=== PATIENT | male | born 1940 | race Caucasian/White ===

== ENCOUNTER 2020-03-02 15:21 | IRF | payer MEDICARE, SELFPAY ==
--- NOTE | ~2020-03-02 | XR_ITS ---
EXAMINATION: XR elbow RT 2V DATE: 03/05/2020 17:06 INDICATION: Right elbow swelling and cellulitis. Fall. TECHNIQUE: 2 views of right elbow were obtained. COMPARISON: None. FINDINGS: Bone alignment is normal. No fracture. There is mild elbow joint osteoarthritis. There is a n enthesophyte at olecranon. No elbow joint effusion. There is soft tissue swelling overlying olecran on, consistent with bursitis. IMPRESSION: 1. Olecranon bursitis. 2. Mild elbow joint osteoarthritis. Reviewed, dictated and finalized at location A.
--- NOTE | ~2020-03-02 | US_ITS ---
EXAMINATION: US venous doppler UE RT DATE: 03/06/2020 09:53 INDICATION: Right upper limb swelling. TECHNIQUE: Grayscale ultrasound images without and with compression and Doppler ultrasound images of the right upper extremity veins were obtained. COMPARISON: None. FINDINGS: The visualized portions of the right internal jugular vein, subclavian vein, axillary vein, brachial veins, basilic vein, cephalic vein, radial vein, and ulnar vein are patent. IMPRESSION: 1. No deep venous thrombosis. Reviewed, dictated and finalized at location A.
--- NOTE | 2020-03-02 15:43 | ADMGEN ---
This patient, Freeman Truong, [facility] Patient/family oriented to hospital policies and general routines including ID bracelet, bed and alarms, visiting hours, pain management, procedures, bathroom and other care routines, personal items, smoking policy, room service/diet, and visiting hours. Valuables list has been completed. Information on how to activate the Rapid Response Team has been discussed. Patient/Family are encouraged to report perceived risks to care and to ask questions if they do not understand what they are told or what they should do.
[2020-03-02 16:00] VITALS: BP 139/73; PULSE 76; RESP 20; TEMP 37; O2SAT 97
[2020-03-02 16:01] VITALS: BMI 29.5
[2020-03-02 16:58] LABS: Glucose Point of Care 134 (65-105)
[2020-03-02] MEDS: metFORMIN HCL 500 MG TABLET 1000 MG PO (18:03)
[2020-03-02 18:34] VITALS: BMI 29.5
[2020-03-02] MEDS: levETIRAcetam 500 MG TABLET PO (20:08)
[2020-03-02] MEDS: ATORVASTATIN 40 MG TABLET PO (20:08)
[2020-03-02 22:00] VITALS: BP 129/81; PULSE 115; RESP 18; TEMP 36.2; O2SAT 96
--- NOTE | 2020-03-02 22:38 | PC.NURSE ---
poor safety awareness, freq gets up on own, bed alarm sounds, room by nurses station, reoriented and encouraged to use call light
[2020-03-03 04:51] LABS: Basophils Percent Auto 0.2 % (0.2-1.2); Eosinophils Absolute Auto 0.1 K/mm3 (0-0.3); Eosinophils Percent Auto 1.2 % (0-4.4); Hematocrit 46.2 % (42.0-52.0); Hemoglobin 16.1 g/dL (14.0-18.0); Immature Granulocyte Absolute 0.05 K/mm3 (0.00-0.031); Immature Granulocyte Percent A 0.4 % (0-0.5); Lymphocytes Absolute Auto 2.11 K/mm3 (0.9-3.2); Lymphocytes Percent Auto 17.4 % (18.3-44.2); Mean Corpuscular HGB Conc 34.8 g/dl (32-36); Mean Corpuscular Hemoglobin 29.1 pg (26-34); Mean Corpuscular Volume 83.5 fl (80-100); Monocytes Absolute Auto 1.3 K/mm3 (0.1-0.6); Monocytes Percent Auto 10.9 % (2.6-8.5); Neutrophils Absolute Auto 8.5 K/mm3 (1.3-6.7); Neutrophils Percent Auto 69.9 % (45.5-73.1); Platelet Count Result 169 k/mm3 (150-375); Red Blood Count 5.53 M/mm3 (4.6-6.20); Red Cell Distribution Width 12.8 % (11.5-14.5); White Blood Count 12.2 K/mm3 (4.5-10.0)
[2020-03-03 04:55] LABS: Hemoglobin A1C 6.6 % (<5.7)
[2020-03-03 05:02] LABS: Blood Urea Nitrogen 14 mg/dL (9-20); Carbon Dioxide 28 mmol/L (22-30); Chloride 100 mmol/L (98-107); Cholesterol 88 mg/dL (0-200); Estimated CRCL calculation 66 ml/min; Estimated Glomerular Filt Rate > 60; Glucose 171 mg/dL (75-110); HDL Direct 31 mg/dL; Potassium 3.7 mmol/L (3.4-5.0); Sodium 136 mmol/L (137-145); Triglycerides 112 mg/dL (<150)
[2020-03-03 05:18] LABS: LDL Cholesterol Direct < 30 mg/dL
[2020-03-03] MEDS: metFORMIN HCL 500 MG TABLET 1000 MG PO ×2 (05:56→17:22)
[2020-03-03 05:57] LABS: Glucose Point of Care 174 (65-105)
[2020-03-03 06:00] VITALS: BP 113/78; PULSE 94; RESP 18; TEMP 35.9; O2SAT 95
[2020-03-03] MEDS: ASPIRIN 325 MG ENTERIC TABLET PO (08:23)
[2020-03-03] MEDS: CLOPIDOGREL BISULFATE 75 MG TABLET PO (08:23)
[2020-03-03] MEDS: levETIRAcetam 500 MG TABLET PO ×2 (08:24→20:46)
[2020-03-03] MEDS: TAMSULOSIN HCL 0.4 MG CAPSULE PO (08:24)
[2020-03-03] MEDS: FLUOXETINE HCL 20 MG CAP PO (08:24)
--- NOTE | 2020-03-03 10:30 | WPDREHABHP ---
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 The patient is a 79-year-old right-handed white male with a past medical history of diabetes mellitus and ear problems who presented to [facility] on February 24, 2020 after patient's noticed seizure like activity with right leg shaking and right eyelid twitching followed by whole body shaking. The patient does not have any history of seizures. There was no urinary incontinence and there was no tongue biting. The MRI of the brain showed a large cortical infarct over the medial left frontal lobe and parasagittal cortex of the left frontal lobe. 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 Posterior circulation is provided by the left vertebral artery. The echocardiogram showed no PFO thrombus or vegetation. Neurology was consulted and the patient was started on aspirin Plavix and Keppra. The EEG showed diffuse slowing in the mild encephalopathy but no epileptiform discharge was seen. Physical examination continues to reveal right-sided weakness and decreased gross motor control decreased safety awareness and impaired balance. Patient passed his swallowing study and is on a regular consistency consistency diabetic diet. The patient will be discharged on aspirin and Plavix. The patient has not traveled inside the or outside the [place] or had contact with someone who is ill that has traveled outside the use in the past 21 days. The patient has not traveled to an area of the [place] that is experiencing no transmission of the Coronavirus and has not had close personal contact with someone that has. The patient does not have a fever. The patient does not have lower respiratory illness symptoms. Therapy was initiated at the acute care facility and the patient transferred to us from [facility] on March 02, 2020 on FALLS OR SURGERIES: The patient has had no major surgeries in the 100 days prior to admission. They had no falls in the past year. They had no falls with injury in the past year. PAST MEDICAL HISTORY: diabetes less and ear problems PAST SURGICAL HISTORY: none SOCIAL HISTORY: the patient lives with his in a 2 level home with 12 steps to enter. The patient laundry is in the basement. The patient is able to live on main floor with bedroom/bathroom available. The patient has standard toilet and tub shower combo. He owns single-point cane but did not use an assistive device prior. He was completely independent and able to drive. He has spouse is available to assist him following rehab if necessary. He is a former smoker no alcohol or drug abuse FAMILY HISTORY: mother with hypertension and heart disease. Father with hypertension and heart disease PRIOR LEVEL OF FUNCTION: Eating was INDEPENDENT Oral Care was INDEPENDENT Toileting Hygiene was INDEPENDENT Shower/Bathing was INDEPENDENT Upper Body Dressing was INDEPENDENT Lower Body Dressing was INDEPENDENT Donning/[place] Footwear was INDEPENDENT Rolling Left and Right was INDEPENDENT Sit to Lying was INDEPENDENT Lying to Sitting was INDEPENDENT Sit to Stand was INDEPENDENT Bed to Chair Transfers was INDEPENDENT Toilet Transfers was INDEPENDENT Walking was INDEPENDENT 999 feet with NO DEVICE Wheelchair Mobility was NOT APPLICABLE PRIOR TO ADMISSION Stairs were 12 stairs independently CURRENT LEVEL OF FUNCTION: Eating was independent Oral Care was supervision or touch assistance Toileting Hygiene was partial motor Shower/Bathing was partial moderate Upper Body Dressing was partial moderate
--- NOTE | 2020-03-03 12:50 | PCCCNOTE ---
On 03/03/20, the student, [Sha Castillo ], provided care and completed [facility] documentation on this patient. I have reviewed the student's documentation and agree with the findings.
[2020-03-03 13:06] VITALS: BMI 29.5
[2020-03-03 14:00] VITALS: BP 129/69; PULSE 90; RESP 20; TEMP 36.6; O2SAT 98
[2020-03-03 17:31] LABS: Glucose Point of Care 226 (65-105)
[2020-03-03] MEDS: ATORVASTATIN 40 MG TABLET PO (20:42)
[2020-03-03 22:00] VITALS: BP 124/71; PULSE 99; RESP 20; TEMP 37.9; O2SAT 94
[2020-03-04 06:00] VITALS: BP 99/59; PULSE 85; RESP 18; TEMP 36.7; O2SAT 90
[2020-03-04] MEDS: metFORMIN HCL 500 MG TABLET 1000 MG PO ×2 (06:55→17:01)
[2020-03-04 06:59] LABS: Glucose Point of Care 208 (65-105)
[2020-03-04 08:00] VITALS: PULSE 85; RESP 18; O2SAT 90
[2020-03-04] MEDS: FLUOXETINE HCL 20 MG CAP PO (10:37)
[2020-03-04] MEDS: TAMSULOSIN HCL 0.4 MG CAPSULE PO (10:37)
[2020-03-04] MEDS: CLOPIDOGREL BISULFATE 75 MG TABLET PO (10:37)
[2020-03-04] MEDS: levETIRAcetam 500 MG TABLET PO ×2 (10:38→21:10)
[2020-03-04] MEDS: ASPIRIN 325 MG ENTERIC TABLET PO (10:38)
--- NOTE | 2020-03-04 11:00 | RPD ---
INDIVIDUALIZED PLAN OF CARE FOR Freeman Truong Brief Synthesis of Pre-Admission Screen, Post-Admission Evaluation and Therapy Evaluations: The patient presents to rehab with a large cortical infarct over the medial left frontal lobe and parasagital cortex of left frontal lobe. Comorbidities include seizure, diabetes mellitus type 2, impaired balance, impulsivity, and right-sided weakness.The patient?s needs will be best met in an intensive program vs. at a lower level of care. The patient requires physician services for neurology services, medical oversight, monitoring and treatment of new seizure, monitoring for adverse reactions to new medications, monitoring of infection, pain control, and coordination of care. The patient requires nursing services for frequent neuro checks, anticoagulation therapy, medication management and education, pressure relief and skin care management, monitoring of labs, diabetes management and education, and fall/safety/seizure precautions. Deficits include:ADLs, Balance, Endurance, Family Training/Education, Mobility, Pain Management, ROM, Safety, Strength, and Transfers. Windows Support Engineer/Case Management for: Discharge Planning and Patient/Family Counseling Physical Therapy: 5 days per week for 90 minutes. Treatments may include: Therapeutic Exercise, Gait Training, Neuromuscular Re-education, Transfer Training, Community Reintegration, Bed Mobility, Patient/Family Education, Wheelchair Mobility Group Therapy/Concurrent Therapy Rationales: -Improve attention span during functional activities in a distracted environment. -Enhance problem solving and/or adequate judgment skills during functional activities in a distracted environment. -Promote increased safety awareness in a distracted environment to reduce fall risk with functional tasks, transfers, and ambulation to allow a more safe, self-sufficient return to the home environment. -Improve dynamic balance skills to promote safety and independence with functional activities in a distracted environment for maximum gain. Occupational Therapy: 5 days per week for 90 minutes. Treatments may include: Therapeutic Exercise, Therapeutic Activity, Cognitive Training, Self-Care Transfer Training, Community Reintegration, Home Management, Patient/Family Education, Wheelchair Mobility Training, Energy Conservation Training Group Therapy/Concurrent Therapy Rationales: -Allow therapist to observe and teach generalization and carry-over of skills learned in individual therapy. -Enhance problem solving and sequencing skills during therapeutic activities in a distracted environment. -Promote increased safety awareness in a realistic setting to reduce fall risk with functional tasks due to visual and verbal distractions. -Increase functional level with ADLs, ADL transfers and use of adaptive equipment through therapeutic activities with others while promoting safety to allow a more safe, self-sufficient return home. Medical Prognosis: Good Anticipated Length of Stay: 7 days Rehab Goals: Eating Goal: 06-Independent Oral Hygiene Goal: 06-Independent Toileting Hygiene Goal: 06-Independent Shower/Bathe Self Goal: 06-Independent Upper Body Dressing Goal: 06-Independent Lower Body Dressing Goal: 06-Independent Putting On/Taking Off Footwear Goal: 06-Independent Rolling Left and Right Goal: 06-Independent Sit to Lying Goal: 06-Independent Lying to Sitting on Side of Bed Goal: 05-Setup or Clean Up Assistance Sit to Stand Goal: 06-Independent Chair/Mnj-sv-Ebdto Transfer Goal: 06-Independent Toilet Transfer Goal: 06-Independent Car Transfer Goal: 06-Independent Walk 10' Goal: 06-Independent Walk 50' with Two Turns Goal: 06-Independent Walk 150' Goal: 06-Independent Walk 10' on Uneven Surface Goal: 06-Independent 1 Step (Curb) Goal: 06-Independent 4 Steps Goal: 06-Independent 12 Steps Goal Score: 06-Independent Picking Up Object Goal: 06-Independent Wheel 50' with Two Turns Score: Wheel 150'
[2020-03-04] MEDS: NEOMYCIN/POLYMYXIN/BACITRACIN OINTMENT 15 GM TUBE 1 APPLIC TOPICAL (11:53)
--- NOTE | 2020-03-04 12:45 | WPDNEURORHBP ---
Subjective Date/time seen: 03/04/20 12:45 Interval history: this 79-year-old is here with rather large left hemispheric stroke which has left him with subtle aphasia and mild to moderate right-sided hemiparesis he is doing fairly well however his complaining of the IV site where a cellulitic area is there at the left forearm which I am going to treat with antibiotic for few days He denies any headache nausea vomiting chest pain shortness of breath fever chills sore throat Review of Systems Review of Systems: All systems reviewed & are unremarkable except as noted in HPI and below Functional Status Ambulation Ability Ability to Ambulate 10 Feet: Minimum Assistance X 1 Ability to Ambulate 50 Feet With 2 Turns: Minimum Assistance X 1 Ability to Ambulate 150 Feet: Minimum Assistance X 1 Ambulation Assistive Devices: None Transfers Ability Ability to Transfer In/Out of Chair: Minimum Assistance X 1 Exam Const: General: comfortable and no acute distress HENMT: General nose exam: Normal nares present Mouth: Yes moist mucous membranes Eyes: General: appearance normal, both eyes and all related structures Neck: Neck: no JVD Resp: Effort & Inspection: normal respiratory effort Auscultation: clear to auscultation bilaterally Cardio: Rate: regular rate Rhythm: regular rhythm GI: GI Palp: Yes Soft to palpation Auscultation: normal bowel sounds Skin: General skin exam: normal color and no rashes or lesions noted Other: cellulitis left forearm at the IV site Neuro: Other: subtle aphasia however able to follow complex commands and wants to go home right-sided is improving quite a bit Extrem: General: normal to inspection Psych: Mental Status: mental status grossly normal Objective Data Vital Signs Vital Signs: Vital Signs - 24 hr 03/03/20 14:00 03/03/20 22:00 03/04/20 06:00 Temperature 36.6 C 37.9 C H 36.7 C Pulse Rate 90 99 85 Respiratory Rate 20 20 18 Blood Pressure 129/69 124/71 99/59 L Pulse Oximetry 98 94 90 03/04/20 08:00 Temperature Pulse Rate 85 Respiratory Rate 18 Blood Pressure Pulse Oximetry 90 Intake/Output Intake/Output: Intake & Output 03/01/20 03/02/20 03/03/20 03/04/20 23:59 23:59 23:59 23:59 Intake Total 720 240 Balance 720 240 Meds/Results Medications: Active Medications Generic Name Dose Route Start Last Admin Trade Name Freq PRN Reason Stop Dose Admin Aspirin 325 mg 03/03/20 09:00 03/04/20 10:38 Aspirin Ec PO 325 mg DAILY SÁNCHEZ Administration Atorvastatin Calcium 40 mg 03/02/20 21:00 03/03/20 20:42 Lipitor PO 40 mg HS SÁNCHEZ Administration Clopidogrel Bisulfate 75 mg 03/03/20 09:00 03/04/20 10:37 Plavix PO 75 mg DAILY SÁNCHEZ Administration Dextrose 12.5 gm 03/02/20 16:30 Dextrose 50% Syringe IV PUSH PRN PRN Hypoglycemia Protocol Fluoxetine HCl 20 mg 03/03/20 09:00 03/04/20 10:37 Prozac PO 20 mg DAILY SÁNCHEZ Administration Glucagon 1 mg 03/02/20 16:30 Glucagon For Inj IM PRN PRN Hypoglycemia Protocol Glucose 15 gm 03/02/20 16:30 Glutose 15 PO PRN PRN Hypoglycemia Protocol Dextrose 1,000 mls @ 100 mls/hr 03/02/20 16:30 Dextrose 5% 1,000 Ml IVPB PRN PRN Hypoglycemia Protocol Levetiracetam 500 mg 03/02/20 21:00 03/04/20 10:38 Keppra Tablet PO 500 mg Q12HR SÁNCHEZ Administration Metformin HCl 1,000 mg 03/02/20 18:00 03/04/20 06:55 Glucophage PO 1,000 mg Q12H SÁNCHEZ Administration Neomycin/Polymyxin/Bacitracin 1 applic 03/04/20 09:00 03/04/20 11:53 Triple Antibiotic Ointment TOPICAL 1 applic QAM SÁNCHEZ Administration Non-Formulary Medication 0.5 mg 03/09/20 09:00 Semaglutide [Ozempic] SUB-Q 04/08/20 09:01 WEEKLY [facility] Tamsulosin HCl 0.4 mg 03/03/20 09:00 03/04/20 10:37 Flomax PO 0.4 mg DAILY SÁNCHEZ Administration Labs Labs: Laboratory Results - last 24 hr 03/03/20 03/04/20 17:13
[2020-03-04 14:00] VITALS: BP 143/71; PULSE 90; RESP 20; TEMP 36.6; O2SAT 100
--- NOTE | 2020-03-04 15:42 | PC.NURSE ---
TRIPLE ANTIBIOTIC OINT APPLIE TO THE RT ELEBOW OLD BLOODY DRINAGE NOTED TO BANDAID, ARM IS RED FROM ELBOW TO WRIST AREA, ELEVATED ON PILLOW WITH ICE APPLIED DR JUAN.
[2020-03-04 17:15] LABS: Glucose Point of Care 165 (65-105)
[2020-03-04 22:00] VITALS: BP 147/79; PULSE 74; RESP 18; TEMP 36.6; O2SAT 91
[2020-03-05 06:00] VITALS: BP 155/67; PULSE 67; RESP 18; TEMP 36.7; O2SAT 94
[2020-03-05] MEDS: metFORMIN HCL 500 MG TABLET 1000 MG PO ×2 (06:46→17:42)
[2020-03-05] MEDS: NEOMYCIN/POLYMYXIN/BACITRACIN OINTMENT 15 GM TUBE 1 APPLIC TOPICAL (06:49)
[2020-03-05 06:50] LABS: Glucose Point of Care 191 (65-105)
[2020-03-05] MEDS: ASPIRIN 325 MG ENTERIC TABLET PO (09:20)
[2020-03-05] MEDS: levETIRAcetam 500 MG TABLET PO ×2 (09:20→21:32)
[2020-03-05] MEDS: CLOPIDOGREL BISULFATE 75 MG TABLET PO (09:20)
[2020-03-05] MEDS: FLUOXETINE HCL 20 MG CAP PO (09:20)
[2020-03-05] MEDS: TAMSULOSIN HCL 0.4 MG CAPSULE PO (09:21)
--- NOTE | 2020-03-05 13:53 | PHAR ---
OZEMPIC - semaglutide injection, solution Ct Nordisk Injection: 2 mg/1.5 mL (1.34 mg/mL) available in: ? Eseill-[id number]-brn pen that delivers 0.25 mg or 0.5 mg per injection. [id number] TANISHA
[2020-03-05 14:00] VITALS: BP 139/93; PULSE 97; RESP 20; TEMP 36.1; O2SAT 97
--- NOTE | 2020-03-05 16:50 | WPDNEURORHBP ---
Subjective Date/time seen: 03/05/20 16:50 this 79-year-old gentleman is here with the left hemispheric stroke with [id number] right-sided hemiparesis when he fell around the time he had stroke his right elbow was bruised however no fractures are noted he has now swelling and redness of the right elbow for which I had started him on Levaquin however seems like it is increasing and more red raising the question that whether not he needs IV antibiotic Otherwise denies any headache nausea vomiting fevers chills or sore throat Review of Systems Review of Systems: All systems reviewed & are unremarkable except as noted in HPI and below Functional Status Ambulation Ability Ability to Ambulate 10 Feet: Contact Guard Ability to Ambulate 50 Feet With 2 Turns: Contact Guard Ability to Ambulate 150 Feet: Contact Guard Ambulation Assistive Devices: None Transfers Ability Ability to Transfer In/Out of Chair: Standby Assistance Exam Const: General: comfortable and no acute distress HENMT: General nose exam: Normal nares present Mouth: Yes moist mucous membranes Eyes: General: appearance normal, both eyes and all related structures Neck: Neck: supple and no JVD Resp: Effort & Inspection: normal respiratory effort Auscultation: clear to auscultation bilaterally Cardio: Rate: regular rate Rhythm: regular rhythm GI: GI Palp: Yes Soft to palpation Auscultation: normal bowel sounds Skin: General skin exam: normal color and no rashes or lesions noted Neuro: Other: patient is awake alert well oriented his aphasia is almost cleared and right-sided hemiparesis is improving Extrem: Other: the right elbow and the right upper arm is swollen along with the elbow the outer part which seems like cellulitic to me of our and tender Psych: Mental Status: mental status grossly normal Objective Data Vital Signs Vital Signs: Vital Signs - 24 hr 03/04/20 22:00 03/05/20 06:00 03/05/20 14:00 Temperature 36.6 C 36.7 C 36.1 C L Pulse Rate 74 67 97 Respiratory Rate 18 18 20 Blood Pressure 147/79 H 155/67 H 139/93 H Pulse Oximetry 91 94 97 Intake/Output Intake/Output: Intake & Output 03/02/20 03/03/20 03/04/20 03/05/20 23:59 23:59 23:59 23:59 Intake Total 976 720 480 Balance 720 720 480 Meds/Results Medications: Active Medications Generic Name Dose Route Start Last Admin Trade Name Freq PRN Reason Stop Dose Admin Acetaminophen 650 mg 03/04/20 13:24 Tylenol Tablet PO Q4H PRN Mild Pain (1-3) or Fever Aspirin 325 mg 03/03/20 09:00 03/05/20 09:20 Aspirin Ec PO 325 mg DAILY SÁNCHEZ Administration Atorvastatin Calcium 40 mg 03/02/20 21:00 03/04/20 21:08 Lipitor PO Not Given HS [facility] Clopidogrel Bisulfate 75 mg 03/03/20 09:00 03/05/20 09:20 Plavix PO 75 mg DAILY SÁNCHEZ Administration Dextrose 12.5 gm 03/02/20 16:30 Dextrose 50% Syringe IV PUSH PRN PRN Hypoglycemia Protocol Fluoxetine HCl 20 mg 03/03/20 09:00 03/05/20 09:20 Prozac PO 20 mg DAILY SÁNCHEZ Administration Glucagon 1 mg 03/02/20 16:30 Glucagon For Inj IM PRN PRN Hypoglycemia Protocol Glucose 15 gm 03/02/20 16:30 Glutose 15 PO PRN PRN Hypoglycemia Protocol Guaifenesin 600 mg 03/04/20 21:30 03/05/20 09:20 Mucinex 12 Hr Tab PO 600 mg Q12HR SÁNCHEZ Administration Dextrose 1,000 mls @ 100 mls/hr 03/02/20 16:30 Dextrose 5% 1,000 Ml IVPB PRN PRN Hypoglycemia Protocol Levetiracetam 500 mg 03/02/20 21:00 03/05/20 09:20 Keppra Tablet PO 500 mg Q12HR SÁNCHEZ Administration Levofloxacin 500 mg 03/05/20 09:00 03/05/20 09:21 Levaquin Tab PO 500 mg DAILY SÁNCHEZ Administration Metformin HCl 1,000 mg 03/02/20 18:00 03/05/20 06:46 Glucophage PO 1,000 mg Q12H SÁNCHEZ Administration Neomycin/Polymyxin/Bacitracin 1 applic 03/04/20 09:00 03/05/20 06:49 Triple Antibiotic Ointment TOPICAL 1 applic QA
[2020-03-05 17:18] LABS: Glucose Point of Care 181 (65-105)
[2020-03-05] MEDS: ATORVASTATIN 40 MG TABLET PO (21:31)
[2020-03-05 21:50] LABS: Basophils Percent Auto 0.2 % (0.2-1.2); Eosinophils Absolute Auto 0.2 K/mm3 (0-0.3); Eosinophils Percent Auto 2.7 % (0-4.4); Hematocrit 46.2 % (42.0-52.0); Hemoglobin 15.9 g/dL (14.0-18.0); Immature Granulocyte Absolute 0.04 K/mm3 (0.00-0.031); Immature Granulocyte Percent A 0.5 % (0-0.5); Lymphocytes Absolute Auto 2.44 K/mm3 (0.9-3.2); Lymphocytes Percent Auto 28.3 % (18.3-44.2); Mean Corpuscular HGB Conc 34.4 g/dl (32-36); Mean Corpuscular Volume 84.3 fl (80-100); Mean Platelet Volume 10.3 fl (7.4-10.4); Monocytes Absolute Auto 0.8 K/mm3 (0.1-0.6); Monocytes Percent Auto 8.7 % (2.6-8.5); Neutrophils Absolute Auto 5.1 K/mm3 (1.3-6.7); Neutrophils Percent Auto 59.6 % (45.5-73.1); Platelet Count Result 194 k/mm3 (150-375); Red Blood Count 5.48 M/mm3 (4.6-6.20); Red Cell Distribution Width 12.8 % (11.5-14.5); White Blood Count 8.6 K/mm3 (4.5-10.0)
[2020-03-05 22:00] VITALS: BP 142/81; PULSE 87; RESP 19; TEMP 36.5; O2SAT 98
[2020-03-05 22:05] LABS: CRP 6.9 mg/dL (<1.0)
--- NOTE | 2020-03-05 23:19 | PM.IMCN ---
Assessment and Plan Assessment and plan (1) Cellulitis: Code(s): L03.90 - Cellulitis, unspecified Status: Acute Assessment and Plan: Given the increased erythema in the extremity and the fact that the patient has diabetes he would benefit from a broader spectrum antibiotic coverage. Was considering placing the patient on linezolid to avoid IV antibiotic use and disruption of patient's therapy schedule. However the patient is on fluoxetine and the risk of serotonin syndrome with linezolid is too high. Therefore IV antibiotic therapy has been started with start Primaxin and vancomycin. I agree with the venous Doppler that has already been ordered to rule out possible DVT (2) Diabetes mellitus: Code(s): E11.9 - Type 2 diabetes mellitus without complications Status: Acute Assessment and Plan: The patient's glucoses have increasing over the last couple of days likely secondary to his cellulitis. The patient's Accu-Cheks will be changed to a.c. and HS. Low-dose sliding scale insulin has been added. HPI Data of Consult Consult date: 03/06/20 Requesting Physician: Rick Oconnor MD Primary Care Provider: BARBER APPRENTICE PHYSICIAN Consult Narrative Narrative: Date and time of patient contact: 03/05/2020 at 11:30 p.m. Freeman Truong is a 79 year old male with a past medical history of type 2 diabetes mellitus and recent large left-sided CVA who is currently in acute rehab at [facility] to wait been consulted to see due to right elbow cellulitis/bursitis. The patient had a large left anterior cerebral artery occlusive stroke 02/24/2020 through 03/02/2000. He was transferred to acute acute rehab on 03/02/2020. The patient reports that during his stay at [facility] he fell out of his bed. He struck his right elbow and since that time has had pain in the elbow. He had x-rays which demonstrated no fracture. But he is has had development of redness and increased swelling in the elbow which has progressed up the forearm and up to the mid humerus. On Levaquin on earlier in the day but he has had progressive increased erythema, edema and warmth to the arm. repeat CBC today demonstrated improvement in his prior leukocytosis. He has not had any fevers or chills. The patient reports that his pain is an 8/10 in intensity. He reports that his pain is not increased with palpation of the elbow or arm. He is able to almost completely extend the elbow and has full flexion of the elbow without increased pain. He does have a small ulceration to the bottom of the elbow and a small amount of serous drainage on the bandage. That he has been doing well with physical therapy. He does have diabetes and he has had some increased hyperglycemia over the last several days. He had prior cubital tunnel and ulnar tunnel releases performed on the right upper extremity many years ago. Residual weakness in his right upper and lower extremity due to his stroke. Review of Systems Review of Systems: Narrative: 12 systems were reviewed with pertinent positives and negatives per HPI. Except as documented in the HPI, all other systems were reviewed and are negative. [facility] Past Medical History Medical History (Updated 03/06/20 @ 02:28 by Prema Luna DO) BPH (benign prostatic hyperplasia) CVA (cerebral vascular accident) Embolic stroke to the left anterior cerebral artery resulting in a large left medial frontal lobe infarct and parasagittal cortex left frontal lobe infarct 02/24/2020 Depression Diabetes mellitus Dyslipidemia Erectile dysfunction GERD (gastroesophageal reflux disease) Hypertriglyceridemia Kidney stones Vitamin D deficiency Surgical History Surgical History (Updated 03/06/20 @ 02:39 by Prema Luna DO) Cubital tunnel syndrome on right Status post surgical release History of appendectomy Hx of tonsillectomy Family History Family History (Reviewed 03/06/20 @ 02:32 by Prema Bolton
[2020-03-06] MEDS: ACETAMINOPHEN 325 MG TABLET 650 MG PO ×2 (02:59→18:53)
[2020-03-06 06:00] VITALS: BP 138/78; PULSE 78; RESP 17; TEMP 37.5; O2SAT 98
[2020-03-06 06:37] LABS: Glucose Point of Care 185 (65-105)
[2020-03-06] MEDS: metFORMIN HCL 500 MG TABLET 1000 MG PO ×2 (06:54→18:41)
[2020-03-06] MEDS: NEOMYCIN/POLYMYXIN/BACITRACIN OINTMENT 15 GM TUBE 1 APPLIC TOPICAL (06:59)
[2020-03-06] MEDS: CLOPIDOGREL BISULFATE 75 MG TABLET PO (10:21)
[2020-03-06] MEDS: FLUOXETINE HCL 20 MG CAP PO (10:21)
[2020-03-06] MEDS: ASPIRIN 325 MG ENTERIC TABLET PO (10:21)
[2020-03-06] MEDS: levETIRAcetam 500 MG TABLET PO ×2 (10:21→20:34)
[2020-03-06] MEDS: TAMSULOSIN HCL 0.4 MG CAPSULE PO (10:22)
[2020-03-06 12:28] LABS: Glucose Point of Care 150 (65-105)
--- NOTE | 2020-03-06 13:11 | PM.IMPN ---
Progress Note: A&P Assessment and Plan (1) Cellulitis: Code(s): L03.90 - Cellulitis, unspecified Status: Acute Assessment and Plan: 1.5 weeks ago the patient was in the hospital after a stroke, and he had fallen out of the bed landing on his right elbow. Since then he has slowly notice an increase in pain, swelling, drainage. He denies any fevers or chills. Given the increased erythema in the extremity and the fact that the patient has diabetes he would benefit from a broader spectrum antibiotic coverage. The patient was started on IV Primaxin and vancomycin coverage. Right elbow was draining a clear liquid and a wound culture was taken today. Venous Doppler that has already been ordered to rule out possible DVT to right upper extremity Patient had leukocytosis at 12,200 on 03/03/2020, today it is back down to normal. CRP was also elevated at 6.9. Will repeat labs in the morning. Continue monitoring patient's cellulitis/bursitis and decreased antibiotics when necessary. (2) Diabetes mellitus: Code(s): E11.9 - Type 2 diabetes mellitus without complications Status: Acute Assessment and Plan: The patient's glucoses have increasing over the last couple of days likely secondary to his cellulitis. The patient's glucose this morning was 185. Stable The patient's Accu-Cheks will be changed to ACHS, Low-dose sliding scale insulin has been added. Hypoglycemic protocol in place. 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 Symptoms are otherwise stable at this time and he is working through rehab. (4) Right hemiparesis: Code(s): G81.91 - Hemiplegia, unspecified affecting right dominant side Status: Acute Assessment and Plan: See above under CVA. Time Spent With Patient Time with patient: 25 - 35 minutes Subjective Date/time seen: 03/06/20 13:11 Interval history: Date of service 03/06/2020: The patient states his right elbow is improved today after starting IV antibiotics. The swelling, redness, pain has all improved. He reports full range of motion of his right elbow but states he does have some discomfort with fully extending his arm. He otherwise states his recovery from his stroke is going well. He denies any chest pain, shortness of breath, fever, chills, nausea, vomiting, abdominal pain, diarrhea, leg swelling, calf pain or any other symptoms at this time. Review of Systems Review of Systems: All systems reviewed & are unremarkable except as noted in HPI and below Exam Narrative: Exam Narrative: General: 79-year-old man sitting up in bed talking to his family on the phone and watching TV. Appears comfortable. In no acute distress. Skin: No jaundice or cyanosis. Good skin turgor. Neck: Full range of motion. Supple. Respiratory: Lungs are clear to auscultation bilaterally. No bony chest wall tenderness. Cardiovascular: The heart has a regular rate and rhythm without murmur. Right elbow: Edema noted to his right bursa, and there is a small abrasion with clear drainage noted. Slight warmth noted to medial aspect of right elbow. Erythema to right elbow about 6 cm in total diameter. Lower extremities: No lower extremity edema. Distal pulses are easily palpated. No calf tenderness to palpation. Gastrointestinal: The abdomen is soft, nontender and nondistended with active bowel sounds. Psychiatric: Lucid and oriented. Memory intact. Neurologic: No focal deficits. Speech is clear. No facial drooping. Objective Data Vital Signs Vital Signs: Vital Sign
[2020-03-06 14:00] VITALS: BP 124/76; PULSE 84; RESP 20; TEMP 36.3; O2SAT 98
[2020-03-06 17:32] LABS: Glucose Point of Care 133 (65-105)
--- NOTE | 2020-03-06 17:58 | WPDNEURORHBP ---
Subjective Date/time seen: 03/06/20 17:58 Interval history: this 79-year-old is here after having had a left hemispheric stroke with right-sided hemiparesis superimposed on which she has cellulitis and bursitis of the right elbow for which the hospitalist I have started him on dual IV antibiotics and he is already feeling better overall the symptoms of both stroke and the cellulitis are improving and I have discussed with him the reasoning for IV antibiotics he understood it well and quite comfortable with it he denies any headache nausea vomiting chest pain shortness of breath fever chills sore throat Review of Systems Review of Systems: All systems reviewed & are unremarkable except as noted in HPI and below Functional Status Ambulation Ability Ability to Ambulate 10 Feet: Standby Assistance Ability to Ambulate 50 Feet With 2 Turns: Standby Assistance Ability to Ambulate 150 Feet: Standby Assistance Ambulation Assistive Devices: None Transfers Ability Ability to Transfer In/Out of Chair: Standby Assistance Exam Const: General: comfortable and no acute distress HENMT: General nose exam: Normal nares present Mouth: Yes moist mucous membranes Eyes: General: appearance normal, both eyes and all related structures Neck: Neck: supple and no JVD Resp: Effort & Inspection: normal respiratory effort Auscultation: clear to auscultation bilaterally Cardio: Rate: regular rate Rhythm: regular rhythm GI: GI Palp: Yes Soft to palpation Auscultation: normal bowel sounds Skin: General skin exam: normal color and no rashes or lesions noted Neuro: Other: improving right-sided hemiparesis Extrem: Other: bursitis cellulitis of the right elbow better than yesterday Psych: Mental Status: mental status grossly normal Objective Data Vital Signs Vital Signs: Vital Signs - 24 hr 03/05/20 22:00 03/06/20 06:00 03/06/20 14:00 Temperature 36.5 C 37.5 C 36.3 C L Pulse Rate 87 78 84 Respiratory Rate 19 17 20 Blood Pressure 142/81 H 138/78 124/76 Pulse Oximetry 98 98 98 Intake/Output Intake/Output: Intake & Output 03/03/20 03/04/20 03/05/20 03/06/20 23:59 23:59 23:59 23:59 Intake Total 720 302 856 4255 Balance 720 661 794 4419 Meds/Results Medications: Active Medications Generic Name Dose Route Start Last Admin Trade Name Freq PRN Reason Stop Dose Admin Acetaminophen 650 mg 03/04/20 13:24 03/06/20 02:59 Tylenol Tablet PO 650 mg Q4H PRN Administration Mild Pain (1-3) or Fever Aspirin 325 mg 03/03/20 09:00 03/06/20 10:21 Aspirin Ec PO 325 mg DAILY SÁNCHEZ Administration Atorvastatin Calcium 40 mg 03/02/20 21:00 03/05/20 21:31 Lipitor PO 40 mg HS SÁNCHEZ Administration Clopidogrel Bisulfate 75 mg 03/03/20 09:00 03/06/20 10:21 Plavix PO 75 mg DAILY SÁNCHEZ Administration Dextrose 12.5 gm 03/02/20 16:30 Dextrose 50% Syringe IV PUSH PRN PRN Hypoglycemia Protocol Dextrose 12.5 gm 03/06/20 02:28 Dextrose 50% Syringe IV PUSH PRN PRN Hypoglycemia Protocol Fluoxetine HCl 20 mg 03/03/20 09:00 03/06/20 10:21 Prozac PO 20 mg DAILY SÁNCHEZ Administration Glucagon 1 mg 03/02/20 16:30 Glucagon For Inj IM PRN PRN Hypoglycemia Protocol Glucagon 1 mg 03/06/20 02:28 Glucagon For Inj IM PRN PRN Hypoglycemia Protocol Glucose 15 gm 03/02/20 16:30 Glutose 15 PO PRN PRN Hypoglycemia Protocol Glucose 15 gm 03/06/20 02:28 Glutose 15 PO PRN PRN Hypoglycemia Protocol Guaifenesin 600 mg 03/04/20 21:30 03/06/20 10:21 Mucinex 12 Hr Tab PO 600 mg Q12HR SÁNCHEZ Administration Dextrose 1,000 mls @ 100 mls/hr 03/02/20 16:30 Dextrose 5% 1,000 Ml IVPB PRN PRN Hypoglycemia Protocol Imipenem/Cilastatin Sodium 500 mg in 100 mls @ 300 mls/hr 03/06/20 01:30 03/06/20 13:08 Primaxin 500 Mg/D5w 100 Ml IVPB 300 mls/hr Q6HR SÁNCHEZ Admi
[2020-03-06] MEDS: ATORVASTATIN 40 MG TABLET PO (20:34)
[2020-03-06 21:40] VITALS: BP 129/74; PULSE 84; RESP 18; TEMP 36.4; O2SAT 94
[2020-03-07 04:56] LABS: Basophils Percent Auto 0.4 % (0.2-1.2); Eosinophils Absolute Auto 0.3 K/mm3 (0-0.3); Eosinophils Percent Auto 3.5 % (0-4.4); Hemoglobin 15.8 g/dL (14.0-18.0); Immature Granulocyte Absolute 0.05 K/mm3 (0.00-0.031); Immature Granulocyte Percent A 0.6 % (0-0.5); Lymphocytes Percent Auto 29.7 % (18.3-44.2); Mean Corpuscular HGB Conc 33.6 g/dl (32-36); Mean Corpuscular Hemoglobin 28.5 pg (26-34); Mean Corpuscular Volume 84.8 fl (80-100); Mean Platelet Volume 9.6 fl (7.4-10.4); Monocytes Absolute Auto 0.7 K/mm3 (0.1-0.6); Monocytes Percent Auto 8.2 % (2.6-8.5); Neutrophils Absolute Auto 4.7 K/mm3 (1.3-6.7); Neutrophils Percent Auto 57.6 % (45.5-73.1); Platelet Count Result 199 k/mm3 (150-375); Red Blood Count 5.54 M/mm3 (4.6-6.20); Red Cell Distribution Width 12.6 % (11.5-14.5); White Blood Count 8.1 K/mm3 (4.5-10.0)
[2020-03-07 05:12] LABS: Blood Urea Nitrogen 16 mg/dL (9-20); CRP 2.9 mg/dL (<1.0); Calcium 9.1 mg/dL (8.4-10.2); Carbon Dioxide 29 mmol/L (22-30); Chloride 100 mmol/L (98-107); Estimated CRCL calculation 60 ml/min; Estimated Glomerular Filt Rate > 60; Glucose 168 mg/dL (75-110); Sodium 136 mmol/L (137-145)
[2020-03-07 06:00] VITALS: BP 117/72; PULSE 68; RESP 18; TEMP 36.3; O2SAT 95
[2020-03-07] MEDS: metFORMIN HCL 500 MG TABLET 1000 MG PO ×2 (06:25→17:25)
[2020-03-07 06:32] LABS: Glucose Point of Care 170 (65-105)
[2020-03-07] MEDS: NEOMYCIN/POLYMYXIN/BACITRACIN OINTMENT 15 GM TUBE 1 APPLIC TOPICAL (06:38)
[2020-03-07 08:00] VITALS: PULSE 92; RESP 20; O2SAT 99
--- NOTE | 2020-03-07 09:15 | PM.IMPN ---
Progress Note: A&P Assessment and Plan (1) Cellulitis: Code(s): L03.90 - Cellulitis, unspecified Status: Acute Assessment and Plan: 1.5 weeks ago the patient was in the hospital after a stroke, and he had fallen out of the bed landing on his right elbow. Since then he has slowly notice an increase in pain, swelling, drainage. He denies any fevers or chills. Given the increased erythema in the extremity and the fact that the patient has diabetes he would benefit from a broader spectrum antibiotic coverage. The patient was started on IV Primaxin and vancomycin coverage. Pending wound culture results. Venous Doppler of right upper extremity was negative for DVT. Patient had leukocytosis at 12,200 on 03/03/2020, today it is back down to normal. CRP was also elevated at 6.9, and today it has improved to 2.9.. Will repeat labs in the morning. Continue monitoring patient's cellulitis/bursitis and decreased antibiotics when necessary. (2) Diabetes mellitus: Code(s): E11.9 - Type 2 diabetes mellitus without complications Status: Acute Assessment and Plan: The patient's glucoses have increasing over the last couple of days likely secondary to his cellulitis. The patient's glucose this morning was 168. Stable The patient's Accu-Cheks will be changed to ACHS, Low-dose sliding scale insulin has been added. Hypoglycemic protocol in place. 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 Symptoms are otherwise stable at this time and he is working through rehab. (4) Right hemiparesis: Code(s): G81.91 - Hemiplegia, unspecified affecting right dominant side Status: Acute Assessment and Plan: See above under CVA. Subjective Date/time seen: 03/07/20 09:15 Interval history: Date of service 03/07/2020: The patient states his right elbow is still painful whenever he tries to use it to get up out of a chair or bed and whenever he bumps on anything. He has been taking some Tylenol as needed for his elbow pain but states he would like something a little bit stronger. The swelling, redness, pain has all improved. He reports full range of motion of his right elbow but states he does have some discomfort with fully extending his arm. He otherwise states his recovery from his stroke is going well. He denies any chest pain, shortness of breath, fever, chills, nausea, vomiting, abdominal pain, diarrhea, leg swelling, calf pain or any other symptoms at this time. Review of Systems Review of Systems: All systems reviewed & are unremarkable except as noted in HPI and below Exam Narrative: Exam Narrative: General: 79-year-old man standing up with physical therapy doing some exercises. Appears comfortable. In no acute distress. Skin: No jaundice or cyanosis. Good skin turgor. Neck: Full range of motion. Supple. Respiratory: Lungs are clear to auscultation bilaterally. No bony chest wall tenderness. Cardiovascular: The heart has a regular rate and rhythm without murmur. Right elbow: Mild Edema noted to his right bursa, and there is a small abrasion with clear drainage noted. Slight warmth noted to medial aspect of right elbow. Erythema has improved and is only about 4 cm in total diameter. Lower extremities: No lower extremity edema. Distal pulses are easily palpated. No calf tenderness to palpation. Gastrointestinal: The abdomen is soft, nontender and nondistended with active bowel sounds. Psychiatric: Lucid and oriented. Memory intact. Neurologic: No focal deficits. Speech is clear
[2020-03-07] MEDS: CLOPIDOGREL BISULFATE 75 MG TABLET PO (09:34)
[2020-03-07] MEDS: ASPIRIN 325 MG ENTERIC TABLET PO (09:34)
[2020-03-07] MEDS: levETIRAcetam 500 MG TABLET PO ×2 (09:35→19:59)
[2020-03-07] MEDS: FLUOXETINE HCL 20 MG CAP PO (09:35)
[2020-03-07] MEDS: TAMSULOSIN HCL 0.4 MG CAPSULE PO (09:35)
[2020-03-07 09:43] VITALS: TEMP 36.3
[2020-03-07] MEDS: ACETAMINOPHEN 325 MG TABLET 650 MG PO (09:43)
--- NOTE | 2020-03-07 11:11 | WPDNEURORHBP ---
Subjective Date/time seen: S/P large left hemispheric stroke with involvement ofmedial frontal lobe ,left parasagital cortex with DM,with right vertebral [id number]/20 11:11 Review of Systems Review of Systems: All systems reviewed & are unremarkable except as noted in HPI and below Functional Status Ambulation Ability Ability to Ambulate 10 Feet: Independent Ability to Ambulate 50 Feet With 2 Turns: Independent Ability to Ambulate 150 Feet: Independent Ambulation Assistive Devices: None Transfers Ability Ability to Transfer In/Out of Chair: Standby Assistance Exam Const: General: cooperative, healthy appearing, comfortable and no acute distress Neck: Neck: full ROM and no JVD Resp: Effort & Inspection: normal respiratory effort Auscultation: clear to auscultation bilaterally Cardio: Rate: regular rate Rhythm: regular rhythm GI: Percussion: Yes normal to percussion Auscultation: normal bowel sounds Skin: General skin exam: no rashes or lesions noted Neuro: Motor exam (neuro): Abnormal motor strength present (right hemiparesis) Extrem: General: other (improving elbow) Objective Data Vital Signs Vital Signs: Vital Signs - 24 hr 03/06/20 14:00 03/06/20 21:40 03/07/20 06:00 Temperature 36.3 C L 36.4 C 36.3 C L Pulse Rate 84 84 68 Respiratory Rate 20 18 18 Blood Pressure 124/76 129/74 117/72 Pulse Oximetry 98 94 95 03/07/20 09:43 Temperature 36.3 C L Pulse Rate Respiratory Rate Blood Pressure Pulse Oximetry Intake/Output Intake/Output: Intake & Output 03/04/20 03/05/20 03/06/20 03/07/20 23:59 23:59 23:59 23:59 Intake Total 307 102 6757 940 Balance 579 578 9084 940 Meds/Results Medications: Active Medications Generic Name Dose Route Start Last Admin Trade Name Freq PRN Reason Stop Dose Admin Acetaminophen 650 mg 03/04/20 13:24 03/07/20 09:43 Tylenol Tablet PO 650 mg Q4H PRN Administration Mild Pain (1-3) or Fever Aspirin 325 mg 03/03/20 09:00 03/07/20 09:34 Aspirin Ec PO 325 mg DAILY SÁNCHEZ Administration Atorvastatin Calcium 40 mg 03/02/20 21:00 03/06/20 20:34 Lipitor PO 40 mg HS SÁNCHEZ Administration Clopidogrel Bisulfate 75 mg 03/03/20 09:00 03/07/20 09:34 Plavix PO 75 mg DAILY SÁNCHEZ Administration Dextrose 12.5 gm 03/02/20 16:30 Dextrose 50% Syringe IV PUSH PRN PRN Hypoglycemia Protocol Dextrose 12.5 gm 03/06/20 02:28 Dextrose 50% Syringe IV PUSH PRN PRN Hypoglycemia Protocol Fluoxetine HCl 20 mg 03/03/20 09:00 03/07/20 09:35 Prozac PO 20 mg DAILY SÁNCHEZ Administration Glucagon 1 mg 03/02/20 16:30 Glucagon For Inj IM PRN PRN Hypoglycemia Protocol Glucagon 1 mg 03/06/20 02:28 Glucagon For Inj IM PRN PRN Hypoglycemia Protocol Glucose 15 gm 03/02/20 16:30 Glutose 15 PO PRN PRN Hypoglycemia Protocol Glucose 15 gm 03/06/20 02:28 Glutose 15 PO PRN PRN Hypoglycemia Protocol Guaifenesin 600 mg 03/04/20 21:30 03/07/20 09:35 Mucinex 12 Hr Tab PO 600 mg Q12HR SÁNCHEZ Administration Dextrose 1,000 mls @ 100 mls/hr 03/02/20 16:30 Dextrose 5% 1,000 Ml IVPB PRN PRN Hypoglycemia Protocol Imipenem/Cilastatin Sodium 500 mg in 100 mls @ 300 mls/hr 03/06/20 01:30 03/07/20 06:45 Primaxin 500 Mg/D5w 100 Ml IVPB Infused Q6HR SÁNCHEZ Infusion Vancomycin HCl 1,500 mg in 500 mls @ 333.333 mls/hr 03/06/20 02:00 03/07/20 03:36 Vancomycin 1,500 Mg/D5w 500 Ml IVPB Infused Q12H SÁNCHEZ Infusion Dextrose 1,000 mls @ 100 mls/hr 03/06/20 02:28 Dextrose 5% 1,000 Ml IVPB PRN PRN Hypoglycemia Protocol Insulin Aspart 2 - 5 units 03/06/20 08:00 03/07/20 09:03 Novolog SUB-Q Not Given TIDWM SÁNCHEZ Protocol Levetiracetam 500 mg 03/02/20 21:00 03/07/20 09:35 Keppra Tablet PO 500 mg Q12HR SÁNCHEZ Administration Metformin HCl 1,000 m
[2020-03-07 12:11] LABS: Glucose Point of Care 119 (65-105)
[2020-03-07 14:00] VITALS: BP 148/73; PULSE 92; RESP 20; TEMP 37.2; O2SAT 99
[2020-03-07 14:41] LABS: Vancomycin Trough 10.7 ug/mL (10.0-20.0)
[2020-03-07 16:44] LABS: Glucose Point of Care 154 (65-105)
[2020-03-07] MEDS: ATORVASTATIN 40 MG TABLET PO (20:00)
[2020-03-07 22:00] VITALS: BP 136/79; PULSE 80; RESP 18; TEMP 36.4; O2SAT 97
[2020-03-08 06:00] VITALS: BP 122/74; PULSE 75; RESP 18; TEMP 36.6; O2SAT 100
[2020-03-08] MEDS: metFORMIN HCL 500 MG TABLET 1000 MG PO ×2 (06:34→17:46)
[2020-03-08 06:46] LABS: Glucose Point of Care 175 (65-105)
[2020-03-08 10:03] LABS: Basophils Percent Auto 0.4 % (0.2-1.2); Eosinophils Absolute Auto 0.2 K/mm3 (0-0.3); Eosinophils Percent Auto 2.4 % (0-4.4); Hematocrit 48.2 % (42.0-52.0); Hemoglobin 16.5 g/dL (14.0-18.0); Immature Granulocyte Absolute 0.03 K/mm3 (0.00-0.031); Immature Granulocyte Percent A 0.4 % (0-0.5); Lymphocytes Absolute Auto 1.78 K/mm3 (0.9-3.2); Lymphocytes Percent Auto 21.8 % (18.3-44.2); Mean Corpuscular HGB Conc 34.2 g/dl (32-36); Mean Corpuscular Hemoglobin 28.7 pg (26-34); Mean Corpuscular Volume 83.8 fl (80-100); Mean Platelet Volume 9.7 fl (7.4-10.4); Monocytes Absolute Auto 0.6 K/mm3 (0.1-0.6); Monocytes Percent Auto 7.5 % (2.6-8.5); Neutrophils Absolute Auto 5.5 K/mm3 (1.3-6.7); Neutrophils Percent Auto 67.5 % (45.5-73.1); Platelet Count Result 251 k/mm3 (150-375); Red Blood Count 5.75 M/mm3 (4.6-6.20); Red Cell Distribution Width 12.6 % (11.5-14.5); White Blood Count 8.2 K/mm3 (4.5-10.0)
[2020-03-08 10:49] LABS: CRP 1.9 mg/dL (<1.0)
[2020-03-08] MEDS: FLUOXETINE HCL 20 MG CAP PO (11:04)
[2020-03-08] MEDS: TAMSULOSIN HCL 0.4 MG CAPSULE PO (11:04)
[2020-03-08] MEDS: CLOPIDOGREL BISULFATE 75 MG TABLET PO (11:04)
[2020-03-08] MEDS: levETIRAcetam 500 MG TABLET PO ×2 (11:04→22:17)
[2020-03-08] MEDS: ASPIRIN 325 MG ENTERIC TABLET PO (11:04)
[2020-03-08] MEDS: NEOMYCIN/POLYMYXIN/BACITRACIN OINTMENT 15 GM TUBE 1 APPLIC TOPICAL (11:06)
[2020-03-08 11:32] LABS: Glucose Point of Care 142 (65-105)
--- NOTE | 2020-03-08 13:18 | PCDIET ---
Nutrition Follow-Up Complete: Nutrition Diagnosis: Overweight related to history of excessive energy intake as evidenced by BMI of 29.5. Nutrition Goal: Patient to consume 75% of meals or greater. Goal met. Patient consuming 100% of most meals on diabetic, 2 gram sodium diet. No c/o per patient. Last recorded weight is 101.4 kg. Recommend obtaining new weight. Bowel Motility: Last documented BM on 03/05/20. Labs Reviewed: Glu (175) Meds Noted: Primaxin, Novolog, Glucophage, Vancomycin Additional Notes: Right elbow cellulitis. No other skin issues reported. Will continue to monitor with same goals. Nutrition Monitoring and Evaluation: Follow up in 7 days.
[2020-03-08 14:00] VITALS: BP 142/86; PULSE 90; RESP 20; TEMP 36.2; O2SAT 98
--- NOTE | 2020-03-08 14:40 | WPDNEURORHBP ---
Subjective Date/time seen: 03/08/20 14:40 Interval history: this 79-year-old gentleman is here status post his stroke affecting his right side of the body he has significantly improved however is getting IV antibiotics for his local infection around the right elbow and also bursitis. He denies any headache nausea vomiting chest pain shortness of breath fever chills sore throat Review of Systems Review of Systems: All systems reviewed & are unremarkable except as noted in HPI and below Functional Status Ambulation Ability Ability to Ambulate 10 Feet: Independent Ability to Ambulate 50 Feet With 2 Turns: Independent Ability to Ambulate 150 Feet: Independent Ambulation Assistive Devices: None Transfers Ability Ability to Transfer In/Out of Chair: Standby Assistance Exam Const: General: comfortable and no acute distress HENMT: General nose exam: Normal nares present Mouth: Yes moist mucous membranes Eyes: General: appearance normal, both eyes and all related structures Neck: Neck: supple and no JVD Resp: Effort & Inspection: normal respiratory effort Auscultation: clear to auscultation bilaterally Cardio: Rate: regular rate Rhythm: regular rhythm GI: GI Palp: Yes Soft to palpation Auscultation: normal bowel sounds Skin: General skin exam: normal color and no rashes or lesions noted Neuro: Other: speech and language functions are normal right-sided hemiparesis has significantly improved Extrem: Other: the swelling and redness of the right upper extremity particularly around the the elbow region is better and once the hospitalist clear him the discharge planning will be done quickly Psych: Mental Status: mental status grossly normal Objective Data Vital Signs Vital Signs: Vital Signs - 24 hr 03/07/20 22:00 03/08/20 06:00 03/08/20 14:00 Temperature 36.4 C L 36.6 C 36.2 C L Pulse Rate 80 75 90 Respiratory Rate 18 18 20 Blood Pressure 136/79 122/74 142/86 H Pulse Oximetry 97 100 98 Intake/Output Intake/Output: Intake & Output 03/05/20 03/06/20 03/07/20 03/08/20 23:59 23:59 23:59 23:59 Intake Total 720 2120 1620 1180 Balance 720 2120 1620 1180 Meds/Results Medications: Active Medications Generic Name Dose Route Start Last Admin Trade Name Freq PRN Reason Stop Dose Admin Acetaminophen 650 mg 03/04/20 13:24 03/07/20 09:43 Tylenol Tablet PO 650 mg Q4H PRN Administration Mild Pain (1-3) or Fever Aspirin 325 mg 03/03/20 09:00 03/08/20 11:04 Aspirin Ec PO 325 mg DAILY SÁNCHEZ Administration Atorvastatin Calcium 40 mg 03/02/20 21:00 03/07/20 20:00 Lipitor PO 40 mg HS SÁNCHEZ Administration Clopidogrel Bisulfate 75 mg 03/03/20 09:00 03/08/20 11:04 Plavix PO 75 mg DAILY SÁNCHEZ Administration Dextrose 12.5 gm 03/06/20 02:28 Dextrose 50% Syringe IV PUSH PRN PRN Hypoglycemia Protocol Fluoxetine HCl 20 mg 03/03/20 09:00 03/08/20 11:04 Prozac PO 20 mg DAILY SÁNCHEZ Administration Glucagon 1 mg 03/06/20 02:28 Glucagon For Inj IM PRN PRN Hypoglycemia Protocol Glucose 15 gm 03/06/20 02:28 Glutose 15 PO PRN PRN Hypoglycemia Protocol Guaifenesin 600 mg 03/04/20 21:30 03/08/20 11:04 Mucinex 12 Hr Tab PO 600 mg Q12HR SÁNCHEZ Administration Imipenem/Cilastatin Sodium 500 mg in 100 mls @ 300 mls/hr 03/06/20 01:30 03/08/20 14:03 Primaxin 500 Mg/D5w 100 Ml IVPB 300 mls/hr Q6HR SÁNCHEZ Administration Dextrose 1,000 mls @ 100 mls/hr 03/06/20 02:28 Dextrose 5% 1,000 Ml IVPB PRN PRN Hypoglycemia Protocol Vancomycin HCl 1,750 mg in 500 mls @ 250 mls/hr 03/08/20 02:00 03/08/20 03:10 Vancomycin 1,750 Mg/D5w 500 Ml IVPB Infused Q12H SÁNCHEZ Infusion Insulin Aspart 2 - 5 units 03/06/20 08:00 03/08/20 13:39 Novolog SUB-Q Not Given TIDWM [facility] Protocol Levetiracetam 500 mg 03/02/20 21:00 03/08/20 11:04 Keppra Tablet PO 500 mg Q12HR SC
--- NOTE | 2020-03-08 17:33 | PM.IMPN ---
Progress Note: A&P Assessment and Plan (1) Cellulitis: Code(s): L03.90 - Cellulitis, unspecified Status: Acute Assessment and Plan: with Bursitis on xray. Patient has noticed improvement in redness/swelling in her right forearm. WCx growing staph aureus; sensitivities pending.Venous Doppler of right upper extremity was negative for DVT. Leukocytosis resolved. CRP 1.9 Continue IV Primaxin and vancomycin coverage given cellulitis/bursitis and DMII; tailor antibiotics to cultures. Likely Doxycycline Q12 to complete a 10 day course total Continue monitoring patient's cellulitis/bursitis Likely recommend short course of 25 mg Tramadol as needed for breakthrough pain at discharge (2) Diabetes mellitus: Code(s): E11.9 - Type 2 diabetes mellitus without complications Status: Acute Assessment and Plan: BGL mid 100s today. 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 Symptoms are otherwise stable at this time and he is working through rehab. (4) Right hemiparesis: Code(s): G81.91 - Hemiplegia, unspecified affecting right dominant side Status: Acute Assessment and Plan: See above under CVA. (5) DVT prophylaxis: Code(s): Z29.9 - Encounter for prophylactic measures, unspecified Status: Acute Assessment and Plan: Will defer to primary service Additional Plan Thank you for allowing the Hospitalist team to care for this patient during their stay. We will continue to follow with you. Please call with any questions Subjective Date/time seen: 03/08/20 17:33 Hospitalist Consult Progress Note Interval history: Patient is a 79 yo M with history of type 2 diabetes mellitus and recent large left-sided CVA who is currently in acute rehab at [facility]; Hospitalist service consulted for medical management of cellulitis/bursitis of right elbow. Patient states the pain is still present; he tells me the Tylenol works, but he does not get it often enough and that he has to ask for the medication; it was explained that this is ordered PRN for pain and he needs to ask to receive the medication. He notes the redness and swelling has improved since the injury. It is still draining some fluid occasionally. Otherwise he has no other complaints. Denies f/c/s, cp/palpitations, sob/cough, n/v/d/c, abd pain, changes in BMs, dysuria, hematuria, cloudy urine, calf pain/swelling. Review of Systems Review of Systems: All systems reviewed & are unremarkable except as noted in HPI and below Exam Narrative: Exam Narrative: Patient sitting upright in bed at time of visit; eating dinner at time of visit Const: General: cooperative, comfortable, no acute distress, well developed, alert and awake Nutritional Appearance: well nourished Orientation/consciousness: patient oriented x3 HENMT: Head: normocephalic and atraumatic General nose exam: Normal nares present Face and sinus: face symmetric Mouth: Yes moist mucous membranes Eyes: General: appearance normal, both eyes and all related structures EOM: EOMs intact bilaterally Neck: Neck: trachea midline and supple Resp: Effort & Inspection: normal respiratory effort Auscultation: clear to auscultation bilaterally Cardio: Rate: regular rate Rhythm: regular rhythm Heart sounds: no murmurs GI: Inspection: non-distended GI Palp: No abdominal tenderness and Yes Soft to palpation Auscultation: normal bowel sounds a
[2020-03-08 17:36] LABS: Glucose Point of Care 161 (65-105)
[2020-03-08 21:49] LABS: Glucose Point of Care 116 (65-105)
[2020-03-08 22:00] VITALS: BP 125/82; PULSE 89; RESP 18; TEMP 36.2; O2SAT 97
[2020-03-08] MEDS: ATORVASTATIN 40 MG TABLET PO (22:16)
[2020-03-09] MEDS: NEOMYCIN/POLYMYXIN/BACITRACIN OINTMENT 15 GM TUBE 1 APPLIC TOPICAL (05:51)
[2020-03-09 05:56] LABS: Glucose Point of Care 185 (65-105)
[2020-03-09 06:00] VITALS: BP 113/64; PULSE 77; RESP 18; TEMP 35.6; O2SAT 97
[2020-03-09] MEDS: metFORMIN HCL 500 MG TABLET 1000 MG PO (07:06)
[2020-03-09] MEDS: CLOPIDOGREL BISULFATE 75 MG TABLET PO (09:29)
[2020-03-09] MEDS: TAMSULOSIN HCL 0.4 MG CAPSULE PO (09:30)
[2020-03-09] MEDS: levETIRAcetam 500 MG TABLET PO (09:30)
[2020-03-09] MEDS: FLUOXETINE HCL 20 MG CAP PO (09:30)
[2020-03-09] MEDS: ASPIRIN 325 MG ENTERIC TABLET PO (09:30)
[2020-03-09] MEDS: ACETAMINOPHEN 325 MG TABLET 650 MG PO (09:33)
--- NOTE | 2020-03-09 09:50 | PCOTNOTE ---
Attempted to see this A.M. Patient refused to participate. Patient verbalized, he is sick to his stomach, nauseated, it has been 4 or 5 days since a bowel movement . RN was notified and aware at this time. Patient verbalized he may feel better this afternoon and try again.
[2020-03-09] MEDS: DOXYCYCLINE HYCLATE 100 MG TABLET PO (10:19)
--- NOTE | 2020-03-09 10:40 | PM.IMPN ---
Progress Note: A&P Assessment and Plan (1) Cellulitis: Code(s): L03.90 - Cellulitis, unspecified Status: Acute Assessment and Plan: with Bursitis noted on xray. Patient has noticed improvement in redness/swelling in her right forearm. WCx growing staph aureus; mclain sensitive. Venous Doppler of right upper extremity was negative for DVT. Leukocytosis resolved. CRP 1.9 yesterday. IV Primaxin and vancomycin d/c today; switched to PO Doxycycline today. Recommend Doxycycline Q12 to complete a 10 day course total (through 03/15) Okay for discharge from hospitalist standpoint Will continue to follow should patient stay Recommend Tylenol as needed for pain given recent fall (2) Diabetes mellitus: Code(s): E11.9 - Type 2 diabetes mellitus without complications Status: Acute Assessment and Plan: BGL mid 100s today. 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 Symptoms are otherwise stable at this time and he is working through rehab. (4) Right hemiparesis: Code(s): G81.91 - Hemiplegia, unspecified affecting right dominant side Status: Acute Assessment and Plan: See above under CVA. (5) DVT prophylaxis: Code(s): Z29.9 - Encounter for prophylactic measures, unspecified Status: Acute Assessment and Plan: Will defer to primary service Additional Plan Thank you for allowing the Hospitalist team to care for this patient during their stay. We will continue to follow with you during her stay. Please call with any questions Subjective Date/time seen: 03/09/20 10:40 This is a hospitalist consult progress note Interval history: Patient is a 79 yo M with history of type 2 diabetes mellitus and recent large left-sided CVA who is currently in acute rehab at [facility]; Hospitalist service consulted for medical management of cellulitis/bursitis of right elbow. Patient states the pain is better today, although complains of abdominal cramping and a migraine headache. Overall he feels elbow swelling/pain is better. It is still draining some fluid occasionally. Otherwise he has no other complaints. Denies f/c/s, cp/palpitations, sob/cough, n/v/d/c, changes in BMs, dysuria, hematuria, cloudy urine, calf pain/swelling. Review of Systems Review of Systems: All systems reviewed & are unremarkable except as noted in HPI and below Exam Narrative: Exam Narrative: Patient sitting upright in bed at time of visit; eating dinner at time of visit Const: General: cooperative, comfortable, no acute distress, well developed, alert and awake Nutritional Appearance: well nourished Orientation/consciousness: patient oriented x3 HENMT: Head: normocephalic and atraumatic General nose exam: Normal nares present Face and sinus: face symmetric Mouth: Yes moist mucous membranes Eyes: General: appearance normal, both eyes and all related structures EOM: EOMs intact bilaterally Neck: Neck: trachea midline and supple Resp: Effort & Inspection: normal respiratory effort Auscultation: clear to auscultation bilaterally Cardio: Rate: regular rate Rhythm: regular rhythm Heart sounds: no murmurs GI: Inspection: non-distended GI Palp: No abdominal tenderness and Yes Soft to palpation Auscultation: normal bowel sounds and normoactive bowel sounds Skin: General skin exam: normal color and no rashes or lesions noted Neuro: General: patient oriented x3,
--- NOTE | 2020-03-09 11:26 | PCPTNOTE ---
Attempted PT treatment. Pt refused therapy due to stomach cramps/ache and headache. Dr Oconnor and Manuela GAO aware. Will try again later today.
[2020-03-09 12:07] LABS: Glucose Point of Care 208 (65-105)
--- NOTE | 2020-03-09 13:15 | PCOTNOTE ---
Patient was attempted 2 times this afternoon(12:30/13:15). Patient refused to participate, verbalized he was no tup for it today, he will try again in the morning. Patient did not receive any OT minutes this date.
--- NOTE | 2020-03-09 13:30 | WPDNEURORHBP ---
Subjective Date/time seen: 03/09/20 13:30 Interval history: this 79-year-old has done remarkably well in over rehab unit after having had left hemispheric stroke with initial speech defect which has resolved and his right hemiparesis has also significantly resolved early this morning he was having some abdominal discomfort and mild headache which has resolved by this afternoon and he says he will be ready to go home anytime on we wish to discharge him he denies any headache nausea vomiting fever chills sore throat no abdominal pain anymore no headaches anymore and the cellulitic area of the right elbow is much better although still is reddish and according to the hospitalist we need to give him oral antibiotic for the next 10 days or so Review of Systems Review of Systems: All systems reviewed & are unremarkable except as noted in HPI and below Functional Status Ambulation Ability Ability to Ambulate 10 Feet: Independent Ability to Ambulate 50 Feet With 2 Turns: Independent Ability to Ambulate 150 Feet: Independent Ambulation Assistive Devices: None Transfers Ability Ability to Transfer In/Out of Chair: Standby Assistance Exam Const: General: comfortable and no acute distress HENMT: General nose exam: Normal nares present Mouth: Yes moist mucous membranes Eyes: General: appearance normal, both eyes and all related structures Neck: Neck: supple and no JVD Resp: Effort & Inspection: normal respiratory effort Auscultation: clear to auscultation bilaterally Cardio: Rate: regular rate Rhythm: regular rhythm GI: GI Palp: Yes Soft to palpation Auscultation: normal bowel sounds Skin: General skin exam: normal color and no rashes or lesions noted Other: except the right elbow which is reddish but definitely much better than before Neuro: Other: patient's mental status is within the normal range is speech and language functions are intact cranial exam shows normal and right-sided hemiparesis is very subtle if any Extrem: Other: the cellulitis of the right elbow is much better Psych: Mental Status: mental status grossly normal Objective Data Vital Signs Vital Signs: Vital Signs - 24 hr 03/08/20 14:00 03/08/20 22:00 03/09/20 06:00 Temperature 36.2 C L 36.2 C L 35.6 C L Pulse Rate 90 89 77 Respiratory Rate 20 18 18 Blood Pressure 142/86 H 125/82 113/64 Pulse Oximetry 98 97 97 Intake/Output Intake/Output: Intake & Output 03/06/20 03/07/20 03/08/20 03/09/20 23:59 23:59 23:59 23:59 Intake Total 2120 1620 2120 220 Balance 2120 1620 2120 220 Meds/Results Medications: Active Medications Generic Name Dose Route Start Last Admin Trade Name Freq PRN Reason Stop Dose Admin Acetaminophen 650 mg 03/04/20 13:24 03/09/20 09:33 Tylenol Tablet PO 650 mg Q4H PRN Administration Mild Pain (1-3) or Fever Aspirin 325 mg 03/03/20 09:00 03/09/20 09:30 Aspirin Ec PO 325 mg DAILY SÁNCHEZ Administration Atorvastatin Calcium 40 mg 03/02/20 21:00 03/08/20 22:16 Lipitor PO 40 mg HS SÁNCHEZ Administration Clopidogrel Bisulfate 75 mg 03/03/20 09:00 03/09/20 09:29 Plavix PO 75 mg DAILY SÁNCHEZ Administration Dextrose 12.5 gm 03/06/20 02:28 Dextrose 50% Syringe IV PUSH PRN PRN Hypoglycemia Protocol Doxycycline Hyclate 100 mg 03/09/20 10:00 03/09/20 10:19 Vibramycin Tab PO 03/15/20 09:05 100 mg Q12HR SÁNCHEZ Administration Fluoxetine HCl 20 mg 03/03/20 09:00 03/09/20 09:30 Prozac PO 20 mg DAILY SÁNCHEZ Administration Glucagon 1 mg 03/06/20 02:28 Glucagon For Inj IM PRN PRN Hypoglycemia Protocol Glucose 15 gm 03/06/20 02:28 Glutose 15 PO PRN PRN Hypoglycemia Protocol Guaifenesin 600 mg 03/04/20 21:30 03/09/20 09:30 Mucinex 12 Hr Tab PO 600 mg Q12HR SÁNCHEZ Administration Dextrose 1,000 mls @ 100 mls/hr 03/06/20 02:28 Dextrose 5% 1,000 Ml IVPB PRN PRN Hypoglycemia Protocol In
[2020-03-09] MEDS: INSULIN ASPART (*BKC) 100 UNITS/ML SUB-Q (13:42)
[2020-03-09 14:00] VITALS: BP 102/67; PULSE 75; RESP 16; TEMP 36.2; O2SAT 98
--- NOTE | 2020-03-15 15:12 | PM.DS ---
DS: Admitting Diagnosis Admitting Diagnosis Admitting Diagnosis: Cerebral infarction, unspecified DS: Discharge Diagnosis Discharge Diagnosis (1) DVT prophylaxis: Code(s): Z29.9 - Encounter for prophylactic measures, unspecified Status: Acute (2) Bursitis: Code(s): M71.9 - Bursopathy, unspecified Status: Acute (3) CVA (cerebral vascular accident): Code(s): I63.9 - Cerebral infarction, unspecified Status: Acute (4) Cellulitis: Code(s): L03.90 - Cellulitis, unspecified Status: Acute (5) Right hemiparesis: Code(s): G81.91 - Hemiplegia, unspecified affecting right dominant side Status: Acute (6) Diabetes mellitus: Code(s): E11.9 - Type 2 diabetes mellitus without complications Status: Acute (7) Seizure: Code(s): R56.9 - Unspecified convulsions Status: Acute (8) Stroke: Code(s): I63.9 - Cerebral infarction, unspecified Status: Acute DS: Summary Hospital Course Reason for hospitalization: patient was admitted because of the above-mentioned diagnosis primarily the stroke with neurological deficit along with the medical issues which were addressed by the hospitalist on myself received PT OT speech and was able to achieve the following independent measures Hospital Course: at the time of discharge the patient's was eating independently oral hygiene was independent E toileting was independent bathing was independent upper body dressing was independent lower by dressing was not set up foot where was independent rolling in bed was independent sitting to lying was in depend lying to sitting was independent [id number] was independent chair transfers were independent 12 transfers independent car transfers independent walking 10 feet independent walking 50 feet with 2 turns independent walking 150 feet independent walking 10 feet uneven surfaces independent Mather set up independent 4 steps independent 12 steps and depend picking up objects independent wheelchair 50 feet not applicable which 150 feet not applicable Time Spent with Patient Time attestation: Total time spent providing and/or coordinating discharge services: Exam Const: General: comfortable and no acute distress HENMT: General nose exam: Normal nares present Mouth: Yes dry mucous membranes Eyes: General: appearance normal, both eyes and all related structures Neck: Neck: supple and no JVD Resp: Effort & Inspection: normal respiratory effort Auscultation: clear to auscultation bilaterally Cardio: Rate: regular rate Rhythm: regular rhythm GI: GI Palp: Yes Soft to palpation Auscultation: normal bowel sounds Skin: General skin exam: normal color and no rashes or lesions noted Neuro: Other: significantly improved neurological state at the time of discharge Extrem: General: normal to inspection Psych: Mental Status: mental status grossly normal Discharge Plan Discharge Attending physician on discharge: Rick Oconnor Consulting providers: Dionicio Wise Discharging Clinician: Rick Oconnor Patient Disposition: Home, Self-Care Activity: may shower and no driving Diet: diabetic Discharge Instructions: You have a 30 day event monitor on that was placed prior to your discharge from [facility] on March 02, 2020. You need to keep the monitor dry. You cannot get monitor wet (no showering/bathing while monitor is being worn) . You must return the monitor at the end of the exam unless directed otherwise. You obtained an abrasion to your right elbow after your fall at [facility]. Continue to keep area clean and cover with a dry dressing daily until resolved. continue to monitor your blood sugars at least twice daily. Per Care Coordination: You have a scheduled appointment with your PCP Dr. Lamonte Leal on March 17, 2020 @ 1:30pm. Discharge instructions per Hospitalist Dionicio Wise PA-C: Fol
== END 2020-03-09 16:30 | disposition home or self-care (01) | DRG 57 ==
PROVIDERS: Internal Medicine; Physician Assistant; Admitting Provider Psychiatry & Neurology Neurology; Visit Provider Psychiatry & Neurology Neurology
DX: I69.351 Hemiplegia and hemiparesis following cerebral infarction affecting right dominant side (principal); L03.114 Cellulitis of left upper limb; I69.320 Aphasia following cerebral infarction; E11.9 Type 2 diabetes mellitus without complications; M70.31 Other bursitis of elbow, right elbow; M19.021 Primary osteoarthritis, right elbow; R22.31 Localized swelling, mass and lump, right upper limb; R56.9 Unspecified convulsions; Z87.891 Personal history of nicotine dependence; Z79.82 Long term (current) use of aspirin; Z79.02 Long term (current) use of antithrombotics/antiplatelets; Z79.84 Long term (current) use of oral hypoglycemic drugs
CPT/HCPCS: 36415; 73070; 80048; 80061; 80202; 83036; 85025; 86140; 87070; 87147; 87186; 87205; 92523; 93971; 97110; 97116; 97161; 97165; 97530; 97535; A9270; J0743; J1815; J3370